=== PATIENT | female | born 1995 | race Caucasian/White ===

== ENCOUNTER 2018-07-31 08:23 | Outpatient (CLI) | payer MEDICAID ==
[~2018-07-31] VITALS: Ht 160 cm; Wt 98.9 kg
[2018-07-31 08:37] VITALS: Ht 160 cm; Wt 98.9 kg
[2018-07-31 08:38] VITALS: BP 121/78
--- NOTE | 2018-08-18 17:33 | PN ---
Triage Information Date/Time Reason for visit: Antepartum testing Weeks of Gestation 40 weeks /Para -0-0-4 Diabetes: none Hypertention: none Objective Heart Rate: 130's Contractions: None Disposition: Discharge Assessment/Plan 23 years old -0-0-4 with single intrauterine at 40 weeks present for antepartum testing. She states good movement. She denies nausea, vomiting, shortness of breath, chest pain, headache, visual changes, vaginal bleeding or LOF. -FHR: No sign of metabolic acidosis- Category I -Contractions: None -SVE: Fingertip/50/-3/ceph/intact -Ultrasound performed: Normal ANGELIQUE, BPP 8 out of 8 -Symptoms and sign of labor, preeclampsia, kick count discussed with patient, she voiced understanding. All of her questions answered. -Patient was discharged home in stable condition with the appropriate discharge instructions provided. I would like patient to have close follow-up with her primary physician or outpatient clinic in 1-2 days or return to triage for worsening symptoms or any other urgent concerns. WADE PRESCOTT Aug 18, 2018 17:33
== END 2018-07-31 11:24 | disposition home or self-care (01) ==
LOC: OBT 08:23 → L-D 08:27 → OBT 11:24
PROVIDERS: ATTEND Obstetrics & Gynecology
DX: O28.9 Unspecified abnormal findings on antenatal screening of mother (principal); Z3A.40 40 weeks gestation of pregnancy
CPT/HCPCS: 76815; 76818; Z7500; G0463

== ENCOUNTER 2018-08-03 12:27 | Inpatient (IN) | payer MEDICAID ==
[~2018-08-03] VITALS: Ht 157.5 cm; Wt 99.2 kg
[2018-08-03 13:03] VITALS: Ht 157.5 cm; Wt 99.2 kg
[2018-08-03 13:04] VITALS: BP 120/69; PULSE 70
[2018-08-03] MEDS ORDERED: BUTORPHANOL 2 MG INJ IV PRN ×2 (13:30)
[2018-08-03] MEDS ORDERED: CARBOPROST 250 MCG INJ IM PRN ×2 (13:30→19:30)
[2018-08-03] MEDS ORDERED: OXYTOCIN 30 UNITS/LR 500 ML IV PRN ×2 (13:30→19:30)
[2018-08-03] MEDS ORDERED: LIDOCAINE 1% (MPF) 30 ML INJ INJ PRN (13:30)
[2018-08-03] MEDS ORDERED: MISOPROSTOL 200 MCG TAB PR PRN ×2 (13:30→19:30)
[2018-08-03] MEDS ORDERED: METHYLERGONOVINE 0.2 MG INJ IM PRN ×2 (13:30→19:30)
[2018-08-03] MEDS ORDERED: OXYTOCIN 30 UNITS/LR 500 ML IV SCH ×3 (13:30→19:25)
[2018-08-03] MEDS: LACTATED RINGER'S 1,000 ML IV SCH ×3 (13:51→17:28)
--- NOTE | 2018-08-03 14:12 | PREAC ---
Date/Time of Note Date/Time of Note DATE: 08/03/18 TIME: 14:11 Anesthesia Eval and Record Evaluation Time Pre-Procedure Interview DATE: 08/03/18 TIME: 14:11 Age 23 Sex female NPO: 8 hrs Preoperative diagnosis labor pain Planned procedure epidural Past Medical History Past Medical History: None Surgery & Anesthesia Issues No known issue Meds Anticoagulation: No Beta Yemi within 24 hr: No Reason Beta Yemi not given: Pt. not on B-Yemi No Active Prescriptions or Reported Meds Current Medications Lactated Ringer's 1,000 ml @ 125 mls/hr Q8H IV Last administered on 08/03/18at 13:51; Admin Dose 125 MLS/HR; Start 08/03/18 at 13:05 Butorphanol Tartrate (Stadol) 1 mg Q2H PRN IV .PAIN SCALE 1-5; Start 08/03/18 at 13:30 Butorphanol Tartrate (Stadol) 2 mg Q2H PRN IV .PAIN SCALE 6-10; Start 08/03/18 at 13:30 Lidocaine (Xylocaine 1% (Mpf)) 30 ml ONCE PRN INJ .EPISIOTOMY; Start 08/03/18 at 13:30 Oxytocin/Lactated Ringer's 500 ml @ 500 mls/hr ONCE POST IV ; Start 08/03/18 at 13:30 Oxytocin/Lactated Ringer's 500 ml @ 125 mls/hr POST IV ; Start 08/03/18 at 13:30 Oxytocin/Lactated Ringer's 500 ml @ 0 mls/hr ONCE PRN IV .VAGINAL BLEEDING; Start 08/03/18 at 13:30 Methylergonovine Maleate (Methergine) 0.2 mg ONCE PRN IM .VAGINAL BLEEDING; Start 08/03/18 at 13:30 Carboprost Tromethamine (Hemabate) 250 mcg ONCE PRN IM .VAGINAL BLEEDING; Start 08/03/18 at 13:30 Misoprostol (Cytotec) 1,000 mcg ONCE PRN RI .VAGINAL BLEEDING; Start 08/03/18 at 13:30 Meds reviewed: Yes Allergies Coded Allergies: No Known Drug Allergies (Verified Allergy, Unknown, 07/31/18) Allergies Reviewed: Yes Labs/Studies Labs Reviewed: Reviewed by anesthesiologist test: N/A Pre-procedure Exam Last vitals Vital Signs Date Temp Pulse Resp B/P (MAP) Pulse Ox O2 O2 Flow FiO2 Time Delivery Rate 08/03/18 98.4 70 120/69 13:04 (86) Airway: Adequate mouth opening, Adequate thyromental dist Mallampati: Mallampati IV Teeth: Normal Lung: Normal Heart: Normal ASA Physical Status ASA physical status: 2 Emergency: None Pre-operative Attestations Prior to commencing anesthesia and surgery, the patient was re-evaluated, there was verification of: *The patient's identity *The results of appropriate recent lab work and preoperative vital signs *The above evaluation not changing prior to induction *Anesthetic plan, risk benefits, alternative and complications discussed with patient/family; questions answered; patient/family understands, accepts and wishes to proceed. TUYET SANTANA DO August 03, 2018 14:12
[2018-08-03] MEDS ORDERED: FENTAnyl 50 MCG/ML VIAL ONE (14:15)
[2018-08-03] MEDS ORDERED: FENTAnyl 2MCG/ML-ROPIV 0.2% 100 ML ONE (14:15)
[2018-08-03] MEDS ORDERED: NALOXONE (0.4 MG/ML) INJ IV PRN (14:30)
[2018-08-03] MEDS ORDERED: FENTAnyl 2MCG/ML-ROPIV 0.2% 100 ML BAG EPI SCH (14:30)
--- NOTE | 2018-08-03 15:52 | HP ---
Date/Time of Note Date/Time of Note DATE: 08/03/18 TIME: 15:44 OB - History Hx of Present Free Text/Dictation 23-year-old 5 para 4 at 40 weeks and 3 days of gestation with estimated date of delivery July 31, 2018 Patient presents in active labor with regular uterine contractions She reports positive movement, denies vaginal bleeding or leaking fluid GBS status is negative Estimated Due Date: July 31, 2018 : 5 Para: 4 Care: Good Care Past Family/Social History * Past Medical, Surgical, Family and Obstetric Histories reviewed from chart. OB Admission Exam Vital Signs Vital Signs Vital Signs Date Temp Pulse Resp B/P (MAP) Pulse Ox O2 O2 Flow FiO2 Time Delivery Rate 08/03/18 98.4 70 120/69 13:04 (86) Physical Exam HEENT: WNL Heart: Rhythm Normal Lungs: Clear, Equal Abdomen: WNL Extremities: Normal Reflexes: Normal Cervical Dilatation: 5cm Effacement: 50% Station: -3 Membranes: Intact Heart Rate: 140's Accelerations: Accelerations Present Decelerations: No Decelerations Varibility: Moderate Contractions on Admission: < 5 Minutes Apart Intensity: Moderate Last 72 hours Lab Results CBC & BMP 08/03/18 13:46 PROCEDURE: US limited OB for weight CLINICAL INDICATION: Macrosomia TECHNIQUE: Multiple sonographic images of the pelvis were obtained. Transabdominal imaging only was performed. The images were reviewed on a PACS workstation. COMPARISON: US PELVIS 07/31/2018; US 07/31/2018 FINDINGS: There is a single viable intrauterine gestation. Cardiac activity is present with 137 beats per minute. There is a cephalic presentation. Measurements were made in order to determine age. The results are as follows: BPD = 9.1 cm. HC = 34.2 cm. AC = 37.8 cm. FL = 7.8 cm. Estimated gestational age of approximately 39 weeks 3 days. The estimated date of delivery is 08/07/2018. The EFW = 4061 g. Growth percentile 78 %. The placenta is anterior right lateral grade 1. There is no evidence for an abr uption or placenta previa. IMPRESSION: 1. Single viable intrauterine gestation of approximately 39 weeks 3 days. 2. Estimated weight is 4061 grams with a growth percentile of 78 %. RPTAT: QQ .Charlie Varela MD, MD Date Time Electronically viewed and signed by .Charlie Varela MD, MD on 08/03/2018 15:14 .L/ CC: GREG IBARRA MD [phone] OB Assessment/Plan Reason for admission: active labor Induction Method: per Pitocin Protocol Other plan: Admit to labor and delivery Pain meds as needed Copies To: CC: WADE PRESCOTT BAHAREH MD August 03, 2018 15:52
[2018-08-03] MEDS ORDERED: LACTATED RINGER'S 1,000 ML IV* SCH (19:25)
--- NOTE | 2018-08-03 19:28 | LDN ---
Date/Time of Note Date/Time of Note DATE: 08/03/18 TIME: 19:26 Delivery Summary Weeks of Gestation Term gestation Placenta Delivered: Spontaneously Meconium: none Episiotomy: No Laceration repair: Second-degree laceration repaired with 2-0 Vicryl Anesthesia type: Epidural Estimated blood loss: 200 Sponge & Needle done & correct: Yes All needle counts correct: Yes Any foreign bodies felt in the: No Infant Delivery Information Sex Infant Sex: female Apgars 1 Minute: 8 5 Minute: 9 Suctioning Nose & mouth suctioned at juan carlos: Yes Delee suction performed: No Umbilical Cord Umbilical cord with: 3 Vessels Cord presentations: no nuchal cord Cord Blood was obtained: Yes Mother & Baby Disposition Disposition Baby's weight 8 pounds 5 ounces/ 3775 g Copies To: CC: WADE PRESCOTT ; GREG IBARRA MD August 03, 2018 19:28
[2018-08-03] MEDS ORDERED: LANOLIN HPA 1 PKT TOP PRN (19:30)
[2018-08-03] MEDS ORDERED: ONDANSETRON 4 MG INJ IV PRN (19:30)
[2018-08-03] MEDS ORDERED: DIBUCAINE 1% 30 GM OINT TOP PRN (19:30)
[2018-08-03] MEDS ORDERED: MAGNESIUM HYDROXIDE 30ML CUP PO PRN (19:30)
[2018-08-03] MEDS ORDERED: CEFAZOLIN 2 GM/50 ML (PMX) 50 ML IVPB ONE (19:30)
[2018-08-03] MEDS ORDERED: SENNA/DOCUSATE NA (8.6MG/50MG) TAB PO PRN (19:30)
[2018-08-03] MEDS ORDERED: ACETAMINOPHEN 325 MG TAB PO PRN ×2 (19:30)
[2018-08-03 22:00] VITALS: BP 103/63; PULSE 72; RESP 20
[2018-08-03] MEDS: DIPHENHYDRAMINE 50 MG INJ IV PRN (22:57)
[2018-08-03] MEDS: BENZOCAINE 20% 56 ML SPRAY TOP PRN (22:57)
[2018-08-03] MEDS: WITCH HAZEL/GLYCERIN PAD PR PRN (22:57)
[2018-08-04 04:00] VITALS: BP 110/62; PULSE 79; RESP 19
[2018-08-04] MEDS: DIPHENHYDRAMINE 50 MG INJ IV PRN (05:39)
[2018-08-04] MEDS: IBUPROFEN 600 MG TAB PO PRN ×3 (05:39→23:36)
[2018-08-04 08:00] VITALS: BP 102/61; PULSE 77; RESP 16
--- NOTE | 2018-08-04 13:20 | PN ---
Date/Time of Note Date/Time of Note DATE: 08/04/18 TIME: 13:18 OB Subjective Subjective Subjective PPD# 1 Patient is doing well. She denies nausea, vomiting, shortness of breath, chest pain, headache. She has been ambulating without difficulty, tolerating regular diet. Pain is well controlled on current medications OB Objective Objective Objective VS - Last 72 Hours, by Label Date Temp Pulse Resp B/P (MAP) Pulse Ox O2 O2 Flow FiO2 Time Delivery Rate 08/04/18 98.8 77 16 102/61 Room Air 08:00 (75) 08/04/18 98.2 79 19 110/62 Room Air 04:00 (78) 08/03/18 98.3 72 20 103/63 Room Air 22:00 (76) 08/03/18 98.4 70 120/69 13:04 (86) General: AAO X 3, comfortable, NAD, appropriate mood and affect. ABD: +BS. Soft, non-tender. Uterus 2 cm below umbilicus Flank: No CVA tenderness (B/L) LE: Mild edema. No clubbing, cyanosis, thigh or calf tenderness (B/L). Homans 'sign is negative OB Assessment/Plan Other plan: 23 years old -0-0-5 s/p normal vaginal delivery at 40 weeks and 3 days. PPD#1 - AF, VSS - Baby is doing well, at bed side. She is bonding well - Contraception methods with R/B/A/FR discussed - Continue care - Discharge home tomorrow - Rx and instruction given - Follow up in 2 and 6 weeks at clinic WADE PRESCOTT August 04, 2018 13:20
--- NOTE | 2018-08-04 13:21 | DS ---
Date/Time of Note Date/Time of Note DATE: 08/04/18 TIME: 13:21 Obstetrical Discharge Record Final Diagnosis Final Diagnosis: Term delivered Other Final Diagnosis 23 years old -0-0-5 s/p normal vaginal delivery at 40 weeks and 3 days. PPD#1. Post course was unremarkable. She is ambulating and tolerating regular diet she is voiding without difficulty. - AF, VSS - Baby is doing well, at bed side. She is bonding well - Contraception methods with R/B/A/FR discussed - Continue care - Discharge home tomorrow - Rx and instruction given - Follow up in 2 and 6 weeks at clinic Condition on Discharge Physical Assessment Voiding: Yes Bowel Movement: Yes Breast: Soft, non-tender Fundus: Firm Calf Tenderness: No Patient Condition: Stable WADE PRESCOTT August 04, 2018 13:21
[2018-08-04 15:55] VITALS: BP 111/74; PULSE 89; RESP 18
[2018-08-04] MEDS: BENZOCAINE 20% 56 ML SPRAY TOP PRN (17:54)
[2018-08-04] MEDS: WITCH HAZEL/GLYCERIN PAD PR PRN (17:54)
[2018-08-04 20:15] VITALS: BP 104/69; PULSE 85; RESP 18
[2018-08-05 03:56] VITALS: BP 114/69; PULSE 77; RESP 20
[2018-08-05] MEDS: IBUPROFEN 600 MG TAB PO PRN ×2 (05:37→12:14)
[2018-08-05 08:30] VITALS: BP 108/70; PULSE 82; RESP 16
--- NOTE | 2018-08-05 09:32 | DS ---
Date/Time of Note Date/Time of Note DATE: 08/05/18 TIME: 09:31 Obstetrical Discharge Record Final Diagnosis Final Diagnosis: Term delivered Other Final Diagnosis day #2 Status post Patient stable and afebrile Vital signs stable Hematology - 72 Hrs Test 08/03/18 13:46 08/04/18 07:25 Hematocrit 38.5 % (37.0-47.0) 31.1 % (37.0-47.0) L Hemoglobin 12.3 g/dl (12.0-16.0) 10.0 g/dl (12.0-16.0) L Mean Corpuscular 26.6 pg (29.0-33.0) L 27.1 pg (29.0-33.0) L Hemoglobin Mean Corpuscular 31.9 g/dl (32.0-37.0) L 32.2 g/dl (32.0-37.0) Hemoglobin Concent Mean Corpuscular Volume 83.3 fl (82.0-101.0) 84.3 fl (82.0-101.0) Mean Platelet Volume fl (7.4-10.4) fl (7.4-10.4) Platelet Count 112 10^3/UL (140-415) L 83 10^3/UL (140-415) #L Red Blood Count 4.62 10^6/ul (4.20-5.40) 3.69 10^6/ul (4.20-5.40) #L Red Cell Distribution 15.7 % (11.5-14.5) H 15.5 % (11.5-14.5) H Width White Blood Count 9.5 10^3/ul (4.8-10.8) 10.1 10^3/ul (4.8-10.8) Abdomen soft, fundus firm Perineum intact Extremities nontender Assessment and plan Patient stable and doing well Plan to discharge home Patient instructed to follow-up with EDUCATIONAL ADMINISTRATOR in 2 and 6 weeks Vaginal Delivery Obstetrical Delivery: Spontaneous Condition on Discharge Physical Assessment Last Vitals: VS - Last 72 Hours, by Label Date Temp Pulse Resp B/P (MAP) Pulse Ox O2 O2 Flow FiO2 Time Delivery Rate 08/05/18 98.1 77 20 114/69 Room Air 03:56 (84) 08/04/18 97.6 85 18 104/69 Room Air 20:15 (81) 08/04/18 98.9 89 18 111/74 15:55 (86) 08/04/18 98.8 77 16 102/61 Room Air 08:00 (75) 08/04/18 98.2 79 19 110/62 Room Air 04:00 (78) 08/03/18 98.3 72 20 103/63 Room Air 22:00 (76) 08/03/18 98.4 70 120/69 13:04 (86) Voiding: Yes Bowel Movement: Yes Breast: Soft, non-tender Fundus: Firm Calf Tenderness: No Patient Condition: Good Copies To: CC: WADE PRESCOTT BAHAREH MD August 05, 2018 09:32
--- NOTE | 2018-08-05 11:14 | PAC ---
Date/Time of Note Date/Time of Note DATE: 08/05/18 TIME: 11:14 Post-Anesthesia Notes Post-Anesthesia Note Last documented vital signs Vital Signs Date Temp Pulse Resp B/P (MAP) Pulse Ox O2 O2 Flow FiO2 Time Delivery Rate 08/05/18 98.3 82 16 108/70 Room Air 08:30 (83) Activity: WNL Respiratory function: WNL Cardiovascular function: WNL Mental status: Baseline Pain reasonably controlled: Yes Hydration appropriate: Yes Nausea/Vomiting absent: Yes TUYET SANTANA DO August 05, 2018 11:14
--- NOTE | 2018-08-06 16:32 | DELSUM ---
Delivery Summary A-C Datetime Report Generated by CPN: 08/06/2018 16:31 DELIVERY PERSONNEL [place] Dehydrator Operator: Sebunnya, Phoebe MATERNAL INFORMATION Delivery Anesthesia: Epidural Medications in Delivery: LR W/30 UNITS PITOCIN Delivery QBL (ml): 200 Placenta Cultured: No Maternal Complications: None LABOR SUMMARY EDC: 07/31/2018 00:00 No. Babies in Womb: 1 Attempted: No Labor Anesthesia: Epidural LABOR INFORMATION Reason for Induction: Not Applicable Onset of Labor: 08/03/2018 03:00 Complete Dilatation: 08/03/2018 17:55 Oxytocin: N/A Group B Beta Strep: Negative Antibiotics # of Doses: 0 Steroids Given: None Reason Steroids Not Administered: Not Applicable MEMBRANES Membranes Rupture Method: Spontaneous Rupture of Membranes: 08/03/2018 16:31 Length of Rupture (hr): 2.15 Amniotic Fluid Color: Clear Amniotic Fluid Amount: Small Amniotic Fluid Odor: Normal STAGES OF LABOR Stage 1 hr: 14 Stage 1 min: 55 Stage 2 hr: 0 Stage 2 min: 45 Stage 3 hr: 0 Stage 3 min: 1 Total Time in Labor hr: 15 Total Time in Labor min: 41 VAGINAL DELIVERY Laceration Extension: Second Degree Laceration Type: Perineal Laceration Repair: Yes Initial Vag Sponge Count: 10 Final Vag Sponge Count: 10 Initial Vag Sharps Count: 1+3 Final Vag Sharps Count: 4 Sponge Count Correct: Yes; Vaginal Sweep Performed Sharps Count Correct: Yes BABY A INFORMATION Delivery Date/Time: 08/03/2018 18:40 Method of Delivery: Vaginal Born in Route : No : N/A Forceps: N/A Vacuum Extraction: N/A Shoulder Dystocia : N/A SHOULDER DYSTOCIA BABY A Delivery Date/Time: 08/03/2018 18:40 PRESENTATION/POSITION BABY A Presentation: Cephalic Cephalic Presentation: Vertex Vertex Position: Left Occipital Transverse Breech Presentation: N/A PLACENTA INFORMATION BABY A Placenta Delivery Time : 08/03/2018 18:41 Placenta Method of Delivery: Spontaneous Placenta Status: Delivered SCORES BABY A Heart Rate 1 min: >100 bpm Resp Effort 1 min: Good Cry Reflex Irritability 1 min: Cough/Sneeze/Pulls Away Muscle Tone 1 min: Active Motion Color 1 min: Blue/Pale Resuscitation Effort 1 min: Tactile Stimulation SCORE 1 MIN: 8 Heart Rate 5 min: >100 bpm Resp Effort 5 min: Good Cry Reflex Irritability 5 min: Cough/Sneeze/Pulls Away Muscle Tone 5 min: Active Motion Color 5 min: Body Rector, Extremit Blue Resuscitation Effort 5 min: Tactile Stimulation SCORE 5 MIN: 9 INFORMATION BABY A Gestational Age at Delivery: 40.2 Gestational Status: Full Term- 39- 40.6 Weeks Infant Outcome : Liveborn Condition : Stable Infant Sex: Female IDENTIFICATION/MEDS BABY A ID Band Number: [id number] ID Band Location: Right Leg; Left Arm Sensor Applied: Yes Sensor Number: [id number] Sensor Location : Cord Clamp Vitamin K Given : Not Given Erythromycin Given: Not Given WEIGHT/LENGTH BABY A Infant Birthweight (gm): 3775 Weight (lb): 8 Weight (oz): 5 Infant Length (in): 20.50 Length (cm): 52.07 CORD INFORMATION BABY A No. Cord Vessels: 3 Nuchal Cord : N/A Cord Blood Taken: Yes Suction: Mouth; Nose ASSESSMENT BABY A Infant Complications: None Physical Findings at Delivery: Within Normal Limits Infant Respirations: Appears Normal Nuclear Physicist/ALS Called : Yes Infant Care By: RT/RN Transferred To: Remains with Mother
== END 2018-08-05 16:30 | disposition home or self-care (01) | DRG 807 ==
LOC: L-D 12:27 → OBT 12:27 → L-D 13:10 → PP1 21:53
PROVIDERS: ADMIT Obstetrics & Gynecology; ATTEND Obstetrics & Gynecology
PROC: 10E0XZZ Delivery of Products of Conception, External Approach (ICD-10-PCS; principal; 2018-08-03)
PROC: 0KQM0ZZ Repair Perineum Muscle, Open Approach (ICD-10-PCS; 2018-08-03)
DX: O70.1 Second degree perineal laceration during delivery (principal); Z37.0 Single live birth; Z3A.40 40 weeks gestation of pregnancy
CPT/HCPCS: 62322; 76815; 85025; 85610; 85730; 86592; 86850; 86900; 86901; 99464; A4310; G0463; J0690; J1200; J2590; J3010; J7120